=== PATIENT | female | born 1990 | race Caucasian/White ===

== ENCOUNTER 2024-03-14 19:57 | Emergency (ER) | payer OTHER, SELFPAY ==
[2024-03-14 20:00] VITALS: BP 143/90; PULSE 92; RESP 16; TEMP 36.2; O2SAT 98; BMI 32.8
--- NOTE | 2024-03-14 20:19 | CRLHL7_ITS ---
For Patients: As a result of the Century Cures Act, medical imaging exams and procedure reports are released immediately into your electronic medical record. You may view this report before your referring provider. If you have questions, please contact your health care provider. INDICATION: Abdominal pain, history of Crohn`s. TECHNIQUE: CT abdomen and pelvis acquired with 95 cc Isovue 370 IV contrast. COMPARISON: None. FINDINGS: Lower chest: Unremarkable. Liver: Unremarkable. Normal in size and attenuation. No suspicious masses. Gallbladder and bile ducts: Unremarkable. No stones or inflammation. No biliary dilatation. Pancreas: Unremarkable. No mass or inflammation. Spleen: Unremarkable. Normal in size. No masses. Adrenal glands: Unremarkable. No nodules. Kidneys: Unremarkable. No suspicious masses, stones, or hydronephrosis. GI tract: Fluid distention of the colon suggestive of diarrhea. Normal in caliber. No sign of mass or inflammation. No secondary signs of appendicitis. Vasculature: Abdominal aorta is normal in caliber. Mesenteric arteries are patent. Lymph nodes: No lymphadenopathy. Peritoneum/Abdominal Wall: Unremarkable. No sign of mass or infiltration. No free air or significant free fluid. Pelvis: Bladder is decompressed. Reproductive organs are unremarkable. Bones: Unremarkable for age. IMPRESSION: Fluid distention of the colon suggestive of diarrhea, which could be consistent with colitis. No evidence of obstruction, perforation, or focal fluid collection. Please note that all CT scans at this facility use dose modulation, iterative reconstruction, and/or weight-based dosing when appropriate to reduce radiation dose to as low as reasonably achievable. Dictated by Elias Cast MD @ 03/14/2024 9:25:49 PM (Electronically Signed)
[2024-03-14 20:43] LABS: Basophils Absolute Auto 0.02 K/uL (0.00-0.30); Basophils Percent Auto 0.2 % (0.0-3.0); Eosinophils Percent Auto 3.5 % (0.0-7.0); Hematocrit 39.9 % (33.0-51.0); Hemoglobin* 13.2 gm/dL (12.0-16.0); Immature Granulocytes Abs Auto 0.01 K/uL (0.00-0.30); Immature Granulocytes Pct Auto 0.1 %; Lymphocytes Percent Auto 49.9 % (20-44); Mean Corpuscular HGB Conc 33 gm/dL (32-36); Mean Corpuscular Hemoglobin 27 pg (26-34); Mean Corpuscular Volume 83 fL (80-100); Monocytes Percent Auto 5.8 % (0.0-11.0); Neutrophils Percent Auto 40.5 % (42.0-72.0); Platelet Count* 332 K/uL (140-440); RDW Coefficient of Variation % 12.7 % (11.5-15.5); Red Blood Count 4.83 m/uL (4.00-5.20); White Blood Count* 8.57 K/uL (4.50-11.00)
[2024-03-14 20:46] LABS: Slide Review Reflex No
[2024-03-14 20:52] LABS: Appearance Urine Clear (Clear); Bilirubin Urine Negative (Negative); Blood Urine Negative (Negative); Color Urine Yellow (Yellow); Glucose Urine Negative (Negative); Ketones Urine Negative (Negative); Leukocyte Esterase Urine 1+ (Negative); Nitrite Urine Negative (Negative); Protein Urine Negative (Negative); Urobilinogen Urine 0.2 (0.2-1.0)
--- NOTE | 2024-03-14 20:55 | ED.ABDPAIN ---
HPI - Abdominal Pain General Date Seen: 03/14/24 Chief Complaint: Abdominal Pain Stated Complaint: bowel blockage Time Seen by Provider: 03/14/24 20:10 Source: patient Mode of arrival: ambulatory Limitations: no limitations History of Present Illness HPI narrative: Patient is a very nice 33-year-old female suffers from Crohn's disease, she is followed by GI out of [place]. She notes the last week to week and a half she has had abdominal discomfort that is worse in the last 48 hours, she has been taking MiraLax as she really can not have a bowel movement she does has a little bit of diarrhea at this point she has not really eaten in the last 48 hours also. She describes her pain over her whole abdomen. With no localization. She has had no fevers or chills, she does feel nauseous cousin has not vomited. No previous history of operations for her Crohn's disease, she was diagnosed 3 years ago, and got her stool air a therapy 10 days ago. She does not think she is . Denies any dysuria frequency there is no blood in her bowel movements or darkening of her stools. She has not lost any weight. She is worried that she may have an obstruction, MD elicited complaint: abdominal pain Onset (ago): week(s) Pain Consistency: constant Location: diffuse Severity: moderate Quality: cramping, aching and sharp Radiation: none Migration to: no migration Exacerbating factors: bowel movement and movement Relieving factors: nothing Associated symptoms: nausea and diarrhea Related Data Patient : No Home Medications ?Medication ?Instructions ?Recorded ?Confirmed buspirone 15 mg tablet 15 mg PO BID 03/14/24 03/14/24 duloxetine 30 mg capsule,delayed 30 mg PO DAILY 03/14/24 03/14/24 release duloxetine 60 mg capsule,delayed 60 mg PO DAILY 03/14/24 03/14/24 release eszopiclone 2 mg tablet 2 mg PO QPM PRN insomnia 03/14/24 03/14/24 hydroxyzine HCl 25 mg tablet 25 - 50 mg PO Q6H PRN anxiety 03/14/24 03/14/24 levonorgestrel 0.15 mg-ethinyl 1 tab PO DAILY 03/14/24 03/14/24 estradiol 30 mcg tablets,3 mos pack(91) lorazepam 1 mg tablet 1 mg PO BID 03/14/24 03/14/24 phentermine 15 mg capsule 15 mg PO DAILY 03/14/24 03/14/24 prednisone 5 mg tablet mg 03/14/24 propranolol 10 mg tablet 10 mg PO DAILY PRN 03/14/24 03/14/24 ustekinumab 90 mg/mL subcutaneous mg subcut 03/14/24 syringe (Stelara) Allergies Allergy/AdvReac Type Severity Reaction Status Date / Time amoxicillin Allergy Intermediate Verified 03/14/24 20:04 Review of Systems Status of ROS Reports: 10 or more systems reviewed and unremarkable except as noted in History and below Exam Narrative: Exam Narrative: On examination in room 6 she is in no apparent distress her vital signs are listed with slight elevation of her blood pressure, she is nontoxic alert oriented pupils equal round reactive to light oropharynx is normal and she is maybe a little bit dry her TMs are normal neck is supple no meningismus cranial nerves 3-12 are grossly normal. Her chest is good air entry bilateral with no wheezing crackles noted heart sounds are normal no clicks murmurs or gallops her abdomen shows some mild tenderness throughout the whole abdomen. Her bowel sounds are quiet but there. There is no organomegaly. No evidence of peritoneal signs. Pelvis is normal stable to rocking, skin is normal, neurologically intact. Const: Vital Signs, click to edit/add: Vital Signs - 24 hr 03/14/24 20:00 Temperature 97.1 F L Pulse Rate [Left P ulse Oximeter] 92 Respiratory Rate 16 Blood Pressure [Ri ght Upper Arm] 143/90 H Pulse Oximetry 98 Oxygen Delivery Me thod Room Air Documenting provider has reviewed patient's vital signs: yes Course Course ED Course: Discussed with the patient that her laboratory tests are reassuring her CT was also reassuring to the point that there is shows some colonic diarrhea. Possibly secondary to colitis, but overall was reassuring. We talked about use of MiraLax, she did not want any Zofran if this makes her constipated, and we also discussed that her urine was positive in looks like it probably is UTI, but a bit dirty with epithelial cells. She was agreeable with this, copies of her laboratory work and disc were given to her. Vital Signs Vital signs: Initial Vital Signs Temperature 97.1 F L 03/14/24 20:00 Temperature Source Temporal Artery Scan 03/14/24 20:00 Pulse Rate 92 03/14/24 20:00 Pulse Rhythm Regular 03/14/24 20:00 Respiratory Rate 16 03/14/24 20:00 Blood Pressure 143/90 H 03/14/24 20:00 Blood Pressure Mean 107 H 03/14/24 20:00 Blood Pressure Position Sitting 03/14/24 20:00 Pulse Oximetry 98 03/14/24 20:00 Oxygen Delivery Method Room Air 03/14/24 20:00 Vital Signs Temperature 97.1 F L 03/14/24 20:00 Pulse Rate 92 03/14/24 20:00 Respiratory Rate 16 03/14/24 20:00 Blood Pressure 143/90 H 03/14/24 20:00 Pulse Oximetry 98 03/14/24 20:00 Oxygen Delivery Method Room Air 03/14/24 20:00 Temperature 97.1 F L 03/14/24 20:00 Pulse Rate 92 03/14/24 20:00 Respiratory Rate 16 03/14/24 20:00 Blood Pressure 143/90 H 03/14/24 20:00 Pulse Oximetry 98 03/14/24 20:00 Oxygen Delivery Method Room Air 03/14/24 20:00 Medications Administered Medications: Generic Name Dose Route Start Last Admin Trade Name Freq PRN Reason Stop Dose Admin Ondansetron HCl 4 mg 03/14/24 21:09 03/14/24 21:17 Ondansetron 2 Mg/Ml Inj IVP 03/14/24 21:10 4 mg ONCE ONE Administration Discontinued Medications Generic Name Dose Route Start Last Admin Trade Name Freq PRN Reason Stop Dose Admin Sodium Chloride 1,000 mls @ 1,000 mls/hr 03/14/24 20:30 03/14/24 21:34 0.9 % Sodium Chloride 1000 Ml IV 03/14/24 21:29 Infused .Q1H ANNETTE Infusion Ketorolac Tromethamine 30 mg 03/14/24 20:19 03/14/24 21:05 Ketorolac 30 Mg/Ml Inj IVP 03/14/24 20:20 30 mg ONCE ONE Administration MDM - Abdominal Pain MDM Narrative Medical decision making narrative: During the evaluation of this patient I considered multiple differential diagnosis including life-threatening differentials which are appendicitis, aortic aneurysm, mesenteric ischemia, bowel perforation, ectopic , volvulus and bowel obstruction, other differential diagnosis include but are not limited to inflammatory bowel disease, cholecystitis, pancreatitis, hepatitis, gastritis, GERD, diverticulitis, peptic ulcer disease, pyelonephritis/UTI, renal colic/stone, pelvic inflammatory disease, cervicitis, endometritis, intrauterine , dysfunctional uterine bleeding, ovarian cyst/torsion, spontaneous as well as other etiologies Medical Records Attestation: I reviewed the patient's medical records. Lab Data Labs: Lab Results 03/14/24 03/14/24 Range/Units 20:32 20:45 WBC 8.57 (4.50-11.00) K/uL RBC 4.83 (4.00-5.20) m/uL Hgb 13.2 (12.0-16.0) gm/dL Hct 39.9 (33.0-51.0) % MCV 83 (80-100) fL MCH 27 (26-34) pg MCHC 33 (32-36) gm/dL RDW Coeff of Natalee 12.7 (11.5-15.5) % Plt Count 332 (140-440) K/uL Neut % (Auto) 40.5 L (42.0-72.0) % Lymph % (Auto) 49.9 H (20-44) % [place] % (Auto) 5.8 (0.0-11.0) % Eos % (Auto) 3.5 (0.0-7.0) % Baso % (Auto) 0.2 (0.0-3.0) % Neut # (Auto) 3.50 (1.7-7.0) K/uL Lymph # (Auto) 4.30 H (0.90-2.90) K/uL [place] # (Auto) 0.50 (0.00-0.90) K/UL Eos # (Auto) 0.30 (0.00-0.50) K/uL Baso # (Auto) 0.02 (0.00-0.30) K/uL Abs Immat Gran (auto) 0.01 (0.00-0.30) K/uL Imm/Tot Granulo (auto) 0.1 % Sodium 133 L (135-149) mmol/L Potassium 3.8 (3.6-5.1) mmol/L Chloride 104 (96-114) mmol/L Carbon Dioxide 22 (20-32) mmol/L Anion Gap 7 (7-15) mEq/L BUN 8 (5-24) mg/dL Creatinine 0.8 (0.5-1.5) mg/dL Estimated Creat Clear 91.68 Estimated GFR 101 ml/min Glucose 84 (60-115) mg/dL Calcium 8.9 (8.4-10.6) mg/dL Total Bilirubin 0.8 (0.1-1.5) mg/dL Direct Bilirubin 0.1 (0.0-0.5) mg/dL AST 17 (12-35) U/L ALT 15 (4-35) U/L Alkaline Phosphatase 40 (40-150) U/L C-Reactive Protein < 0.5 L (0.5-1.0) mg/dL Total Protein 7.0 (6.0-8.3) g/dL Albumin 4.2 (3.3-5.0) g/dL Lipase 29 (23-300) U/L HCG, Qual Negative (Negative) Urine Color Yellow (Yellow) Urine Appearance Clear (Clear) Urine pH 6.0 (5.0-8.5) Ur Specific [place] 1.010 (1.000-1.030) Urine Protein Negative (Negative) Urine Glucose (UA) Negative (Negative) Urine Ketones Negative (Negative) Urine Blood Negative (Negative) Urine Nitrite Negative (Negative) Urine Bilirubin Negative (Negative) Urine Urobilinogen 0.2 (0.2-1.0) Ur Leukocyte Esterase 1+ A (Negative) Urine RBC 0-2 (0-2) Urine WBC 10-25 A (0-5) Ur Squamous Epith Cells Many A (None-Few) Urine Bacteria Moderate A (None) Discharge Plan Discharge Clinical Impression: Abdominal pain, Constipation, UTI (urinary tract infection), Hx of Crohn's disease Patient Disposition: Home, Self-Care Condition: Stable Instructions: Constipation (ED), Urinary Tract Infection in Women (DC), Abdominal Pain (ED) Additional Instructions: Home, rest, mandatory call to GI tomorrow, I would take 20 mL of water with your MiraLax tablets, try them twice a day. Reassuring CT and laboratory work here, return if increasing abdominal pain fevers chills or other issues. rx given thorough instymeds for cipro Activity Level: Light activity Prescriptions: No Action prednisone 5 mg tablet Patient Comments: PLEASE SEE ATTACHED FOR DETAILED DIRECTIONS phentermine 15 mg capsule 15 mg PO DAILY propranolol 10 mg tablet 10 mg PO DAILY PRN hydroxyzine HCl 25 mg tablet 25 - 50 mg PO Q6H PRN (Reason: anxiety) lorazepam 1 mg tablet 1 mg PO BID buspirone 15 mg tablet 15 mg PO BID levonorgestrel-ethinyl estrad 0.15 mg-30 mcg (91) tablets,dose pack,3 month 1 tab PO DAILY duloxetine 30 mg capsule,delayed release(DR/EC) 30 mg PO DAILY duloxetine 60 mg capsule,delayed release(DR/EC) 60 mg PO DAILY eszopiclone 2 mg tablet 2 mg PO QPM PRN (Reason: insomnia) Stelara 90 mg/mL syringe subcut Follow Up/Referrals: Isabelle Medina MD [Primary Care Provider] - Stand Alone Forms: [facility] Info Instructions
[2024-03-14 20:56] LABS: Chloride* 104 mmol/L (96-114); Potassium* 3.8 mmol/L (3.6-5.1); Sodium* 133 mmol/L (135-149)
[2024-03-14 20:57] LABS: Albumin* 4.2 g/dL (3.3-5.0)
[2024-03-14 20:59] LABS: Creatinine* 0.8 mg/dL (0.5-1.5); Est. Creatinine Clearance* 91.68; Estimated Glomerular Filt Rate 101 ml/min
[2024-03-14 21:00] LABS: Anion Gap 7 mEq/L (7-15); Aspartate Amino Transferase* 17 U/L (12-35); Bilirubin Direct* 0.1 mg/dL (0.0-0.5); Bilirubin Total* 0.8 mg/dL (0.1-1.5); Blood Urea Nitrogen* 8 mg/dL (5-24); Calcium* 8.9 mg/dL (8.4-10.6); Carbon Dioxide* 22 mmol/L (20-32); Glucose* 84 mg/dL (60-115)
[2024-03-14 21:01] LABS: Alanine Aminotransferase* 15 U/L (4-35); Alkaline Phosphatase* 40 U/L (40-150); Lipase* 29 U/L (23-300)
[2024-03-14 21:03] LABS: C Reactive Protein* < 0.5 mg/dL (0.5-1.0)
[2024-03-14] MEDS: 0.9 % SODIUM CHLORIDE 1000 ml 1,000 ML IV (21:05)
[2024-03-14] MEDS: KETOROLAC 30 MG/ML inj IVP (21:05)
[2024-03-14 21:11] LABS: Bacteria Urine Moderate; RBC Urine 0-2 (0-2); Squamous Epithelial Cell Urine Many (None-Few)
[2024-03-14 21:15] LABS: HCG Qualitative Serum* Negative (Negative)
[2024-03-14] MEDS: ONDANSETRON 2 MG/ML inj 4 MG IVP (21:17)
--- NOTE | 2024-03-18 10:00 | ED.GENADULT ---
HPI - General Adult General Chief complaint: Abdominal Pain Stated complaint: bowel blockage Time Seen by Provider: 03/14/24 20:10 Source: patient Mode of arrival: ambulatory Limitations: no limitations History of Present Illness HPI narrative: This is an addendum to Dr. Chase is recent ER note for this patient. Urine culture came back this morning going to pathogens 1 of them is staphylococci S haemolyticus. The other pathogen is group B strep (strep agalactiae). I contact the patient by phone. She did not answer but I left a message. She contacted me back later this morning. She is endorsing some ongoing lower abdominal pain that actually getting slightly better. [facility] her primary care provider (at [facility] in [place]) and was switched from ciprofloxacin to Bactrim. She had her 1st dose of Bactrim this morning. Typically group B strep would be resistant to Bactrim. There is no sensitivity data for the staph haemolyticus to Bactrim. Discussed with the patient that it is likely that these 2 pathogens are probably contaminant since her urine Arthur was contaminated by squamous epithelial cells on the day of collection. However, at this time we cannot rule out the possibility that 1 or both of these bacteria is a true pathogen. Options would be to follow-up with her primary care to get a repeat clean-catch urine sample or simply treat empirically based on what were seen. At this point we feel like it is logistically most feasible to just treat. Will have her stop the Bactrim and switch to cephalexin. She does have an allergy to amoxicillin but has had cephalosporins in the past without trouble, she thinks. She will car pick up driver the cephalexin this morning and take her 1st dose today. Related Data Home Medications ?Medication ?Instructions ?Recorded ?Confirmed buspirone 15 mg tablet 15 mg PO BID 03/14/24 03/14/24 duloxetine 30 mg capsule,delayed 30 mg PO DAILY 03/14/24 03/14/24 release duloxetine 60 mg capsule,delayed 60 mg PO DAILY 03/14/24 03/14/24 release eszopiclone 2 mg tablet 2 mg PO QPM PRN insomnia 03/14/24 03/14/24 hydroxyzine HCl 25 mg tablet 25 - 50 mg PO Q6H PRN anxiety 03/14/24 03/14/24 levonorgestrel 0.15 mg-ethinyl 1 tab PO DAILY 03/14/24 03/14/24 estradiol 30 mcg tablets,3 mos pack(91) lorazepam 1 mg tablet 1 mg PO BID 03/14/24 03/14/24 phentermine 15 mg capsule 15 mg PO DAILY 03/14/24 03/14/24 prednisone 5 mg tablet mg 03/14/24 propranolol 10 mg tablet 10 mg PO DAILY PRN 03/14/24 03/14/24 ustekinumab 90 mg/mL subcutaneous mg subcut 03/14/24 syringe (Stelara) Previous Rx's ?Medication ?Instructions ?Recorded cephalexin 500 mg capsule 500 mg PO BID #14 caps 03/18/24 Allergies Allergy/AdvReac Type Severity Reaction Status Date / Time amoxicillin Allergy Intermediate Verified 03/14/24 20:04 Course Vital Signs Vital signs: Initial Vital Signs Temperature 97.1 F L 03/14/24 20:00 Temperature Source Temporal Artery Scan 03/14/24 20:00 Pulse Rate 92 03/14/24 20:00 Pulse Rhythm Regular 03/14/24 20:00 Respiratory Rate 16 03/14/24 20:00 Blood Pressure 143/90 H 03/14/24 20:00 Blood Pressure Mean 107 H 03/14/24 20:00 Blood Pressure Position Sitting 03/14/24 20:00 Pulse Oximetry 98 03/14/24 20:00 Oxygen Delivery Method Room Air 03/14/24 20:00 Vital Signs Temperature 97.1 F L 03/14/24 20:00 Pulse Rate 92 03/14/24 20:00 Respiratory Rate 16 03/14/24 20:00 Blood Pressure 143/90 H 03/14/24 20:00 Pulse Oximetry 98 03/14/24 20:00 Oxygen Delivery Method Room Air 03/14/24 20:00 Temperature 97.1 F L 03/14/24 20:00 Pulse Rate 92 03/14/24 20:00 Respiratory Rate 16 03/14/24 20:00 Blood Pressure 143/90 H 03/14/24 20:00 Pulse Oximetry 98 03/14/24 20:00 Oxygen Delivery Method Room Air 03/14/24 20:00 Medications Administered Medications: Discontinued Medications Generic Name Dose Route Start Last Admin Trade Name Freq PRN Reason Stop Dose Admin Sodium Chloride 1,000 mls @ 1,000 mls/hr 03/14/24 20:30 03/14/24 21:34 0.9 % Sodium Chloride 1000 Ml IV 03/14/24 21:29 Infused .Q1H ANNETTE Infusion Ketorolac Tromethamine 30 mg 03/14/24 20:19 03/14/24 21:05 Ketorolac 30 Mg/Ml Inj IVP 03/14/24 20:20 30 mg ONCE ONE Administration Ondansetron HCl 4 mg 03/14/24 21:09 03/14/24 21:17 Ondansetron 2 Mg/Ml Inj IVP 03/14/24 21:10 4 mg ONCE ONE Administration Medical Decision Making Lab Data Labs: Lab Results 03/14/24 03/14/24 Range/Units 20:32 20:45 WBC 8.57 (4.50-11.00) K/uL RBC 4.83 (4.00-5.20) m/uL Hgb 13.2 (12.0-16.0) gm/dL Hct 39.9 (33.0-51.0) % MCV 83 (80-100) fL MCH 27 (26-34) pg MCHC 33 (32-36) gm/dL RDW Coeff of Natalee 12.7 (11.5-15.5) % Plt Count 332 (140-440) K/uL Neut % (Auto) 40.5 L (42.0-72.0) % Lymph % (Auto) 49.9 H (20-44) % [place] % (Auto) 5.8 (0.0-11.0) % Eos % (Auto) 3.5 (0.0-7.0) % Baso % (Auto) 0.2 (0.0-3.0) % Neut # (Auto) 3.50 (1.7-7.0) K/uL Lymph # (Auto) 4.30 H (0.90-2.90) K/uL [place] # (Auto) 0.50 (0.00-0.90) K/UL Eos # (Auto) 0.30 (0.00-0.50) K/uL Baso # (Auto) 0.02 (0.00-0.30) K/uL Abs Immat Gran (auto) 0.01 (0.00-0.30) K/uL Imm/Tot Granulo (auto) 0.1 % Sodium 133 L (135-149) mmol/L Potassium 3.8 (3.6-5.1) mmol/L Chloride 104 (96-114) mmol/L Carbon Dioxide 22 (20-32) mmol/L Anion Gap 7 (7-15) mEq/L BUN 8 (5-24) mg/dL Creatinine 0.8 (0.5-1.5) mg/dL Estimated Creat Clear 91.68 Estimated GFR 101 ml/min Glucose 84 (60-115) mg/dL Calcium 8.9 (8.4-10.6) mg/dL Total Bilirubin 0.8 (0.1-1.5) mg/dL Direct Bilirubin 0.1 (0.0-0.5) mg/dL AST 17 (12-35) U/L ALT 15 (4-35) U/L Alkaline Phosphatase 40 (40-150) U/L C-Reactive Protein < 0.5 L (0.5-1.0) mg/dL Total Protein 7.0 (6.0-8.3) g/dL Albumin 4.2 (3.3-5.0) g/dL Lipase 29 (23-300) U/L HCG, Qual Negative (Negative) Urine Color Yellow (Yellow) Urine Appearance Clear (Clear) Urine pH 6.0 (5.0-8.5) Ur Specific [place] 1.010 (1.000-1.030) Urine Protein Negative (Negative) Urine Glucose (UA) Negative (Negative) Urine Ketones Negative (Negative) Urine Blood Negative (Negative) Urine Nitrite Negative (Negative) Urine Bilirubin Negative (Negative) Urine Urobilinogen 0.2 (0.2-1.0) Ur Leukocyte Esterase 1+ A (Negative) Urine RBC 0-2 (0-2) Urine WBC 10-25 A (0-5) Ur Squamous Epith Cells Many A (None-Few) Urine Bacteria Moderate A (None) Discharge Plan Discharge Clinical Impression: Abdominal pain, Constipation, UTI (urinary tract infection), Hx of Crohn's disease Patient Disposition: Home, Self-Care Condition: Stable Instructions: Constipation (ED), Urinary Tract Infection in Women (DC), Abdominal Pain (ED) Additional Instructions: Home, rest, mandatory call to GI tomorrow, I would take 20 mL of water with your MiraLax tablets, try them twice a day. Reassuring CT and laboratory work here, return if increasing abdominal pain fevers chills or other issues. rx given thorough instymeds for cipro Activity Level: Light activity Prescriptions: New cephalexin 500 mg capsule 500 mg PO BID Qty: 14 0RF No Action prednisone 5 mg tablet Patient Comments: PLEASE SEE ATTACHED FOR DETAILED DIRECTIONS phentermine 15 mg capsule 15 mg PO DAILY propranolol 10 mg tablet 10 mg PO DAILY PRN hydroxyzine HCl 25 mg tablet 25 - 50 mg PO Q6H PRN (Reason: anxiety) lorazepam 1 mg tablet 1 mg PO BID buspirone 15 mg tablet 15 mg PO BID levonorgestrel-ethinyl estrad 0.15 mg-30 mcg (91) tablets,dose pack,3 month 1 tab PO DAILY duloxetine 30 mg capsule,delayed release(DR/EC) 30 mg PO DAILY duloxetine 60 mg capsule,delayed release(DR/EC) 60 mg PO DAILY eszopiclone 2 mg tablet 2 mg PO QPM PRN (Reason: insomnia) Stelara 90 mg/mL syringe subcut Follow Up/Referrals: Isabelle Medina MD [Primary Care Provider] - Stand Alone Forms: [employer] Info Instructions
== END 2024-03-14 22:19 | disposition home or self-care (01) ==
PROVIDERS: Emergency Provider Family Medicine; PCP Family Medicine
DX: R10.9 Unspecified abdominal pain (principal); K59.00 Constipation, unspecified; N39.0 Urinary tract infection, site not specified; K50.90 Crohn's disease, unspecified, without complications
CPT/HCPCS: 36415; 74177; 80048; 80076; 81001; 83690; 84703; 85025; 86140; 87086; 87186; 96374; 96375; 99281; 99284; 99285; J1885; J2405; J7030; Q9967